=== PATIENT | male | born 1980 | race Caucasian/White ===

== ENCOUNTER → 2023-10-25 07:59 | Outpatient (REF) | payer BC, SELFPAY ==
--- NOTE | 2023-10-25 08:12 | CA_ITS ---
Transthoracic Echocardiogram Patient (Last, First, Middle): Moses Crowder M Gender: Male Date of : 1980 Age: 43 Procedure Date: 10/25/2023 Procedure Type: Transthoracic Echocardiogram Location: OP Height: 167.64 cm Weight: 99.79 kg BSA: 2.08 m2 Heart Rate: bpm BP: 120 / 75 mmHg Customer Resolution Specialist: SALTY Referring MD: Mark Kumar MD Symptoms: I25.10 CAD Study Quality: Adequate with contrast ECG Rhythm: Sinus Conclusions: - The left ventricular systolic function is mildly decreased. The calculated ejection fraction is 50% by biplane method. Findings Procedure Information Contrast agent, definity, is being given per protocol without apparent complications. Left Ventricle Normal left ventricular cavity size. There is mildly increased left ventricular wall thickness. The left ventricular systolic function is mildly decreased. The calculated ejection fraction is 50% by biplane method. There is mild global hypokinesis. Venous The inferior vena cava is normal in size and collapses greater than 50% with inspiration. Prior Study Comparison No prior study available for comparison. Measurements 2D Linear Measurements IVSd: 1.10 0.6-0.9/0.6-1.0 cm LVIDd: 4.10 3.9-5.3/4.2-5.9 cm LVIDd Index: 1.97 2.4-3.2/2.2-3.1 cm/m2 LVIDs: 3.02 2.0-3.6 cm LVPWd: 1.12 0.7-1.1 cm LA Diam: 3.00 2.7-3.8/3.0-4.0 cm LAIDs Index: 1.44 1.5-2.3 cm/m2 LV Mass: 190.86 67-162/88-224 g LV Mass Index: 91.76 43-95/49-115 g/m2 LVOT Diam: 2.10 3.0+(-)1.3 cm 2D Systolic Function EF 4C: 45.00 >55% EF 2C: 57.60 >55% EF BiP: 49.60 >55% LVOT LVOT Pk Santino: 1.13 LVOT Mn Santino: 0.76 LVOT VTI: 0.20 LVOT Pk Grad: 5.00 LVOT Mn Grad: 3.00 LVOT Diam: 2.10 LVOT Area: 3.46 Tricuspid Valve RA Press: 3.00 Updated in Other Vendor System with Status of Final Gary Islas MD electronically signed on 10/26/2023 3:15:04 PM with status of Final
== END ==
LOC: HO.CARD 07:59
PROVIDERS: Visit Provider Internal Medicine Cardiovascular Disease
DX: I25.10 Atherosclerotic heart disease of native coronary artery without angina pectoris (principal)
CPT/HCPCS: 93308; Q9957

== ENCOUNTER → 2023-10-25 08:12 | Outpatient (BNV) | payer BC, SELFPAY | PROVIDERS: Visit Provider Internal Medicine | DX: I25.10 Atherosclerotic heart disease of native coronary artery without angina pectoris (principal) | CPT/HCPCS: 93308 ==